=== PATIENT | male | born 1975 | race Caucasian/White ===

== ENCOUNTER → 2024-06-02 06:22 | Day surgery (SDC) | payer BC, SELFPAY ==
[2024-05-19 09:37] VITALS: BMI 35.8
[2024-05-19 10:36] LABS: Hematocrit 47.2 % (39.0-52.0); Hemoglobin 16.2 g/dL (13.0-18.0); Mean Corp Hgb Conc. 34.3 g/dL (33.0-37.0); Mean Corpuscular Hgb 31.3 pg (27.0-31.0); Mean Corpuscular Volume 91.3 fL (80.0-94.0); Platelet Count 235 10^3/uL (130-400); Red Blood Cell Count 5.17 10^6/uL (4.70-6.10); Red Cell Dist. Width 12.9 % (11.5-14.5); White Blood Cell Count 4.2 10^3/uL (4.8-10.8)
[2024-06-02] VITALS (8 sets, daily range): BP systolic 137–151; BP diastolic 79–93; BMI 35.8
[2024-06-02] MEDS: TRANSDERM-SCOP 1 PATCH TRANSDERM (16:15)
== END ==
LOC: SDS 06:22
PROVIDERS: ATTENDING PHYSICIAN Otolaryngology Facial Plastic Surgery; FAMILY PHYSICIAN Family Medicine
DX: J34.2 Deviated nasal septum (principal); J34.3 Hypertrophy of nasal turbinates; K12.2 Cellulitis and abscess of mouth; J34.89 Other specified disorders of nose and nasal sinuses; R06.83 Snoring
CPT/HCPCS: 30520; 30140; 42140; 36415; 85027; 93005